=== PATIENT | female | born 1930 | race Caucasian/White ===

== ENCOUNTER 2016-03-28 13:59 | Emergency (ER) | payer OTHER ==
[~2016-03-28] VITALS: Ht 162.6 cm; Wt 59.0 kg
[~2016-03-28 13:59] MED LIST: ALLERGY RELIEF25 M2 PO; CEPACOL SORE T1 EAC7 PO; COZAAR100 MG PO; HYDROCHLOROTHIA25 M1 PO; LEVAQUIN 500 M500 MG PO; MUCINEX DM TABL1 TA1 PO; PROVENTIL HFA6.7 G1 INH
[2016-03-28] MEDS ORDERED: ALPRAZOLAM 0.0.25 M1 PO (16:21)
== END 2016-03-28 16:59 | disposition home or self-care (01) ==
LOC: ER 13:59
DX: S01.01XA Laceration without foreign body of scalp, initial encounter (principal); I10 Essential (primary) hypertension; Z90.710 Acquired absence of both cervix and uterus; Z88.5 Allergy status to narcotic agent; W10.8XXA Fall (on) (from) other stairs and steps, initial encounter; Y93.89 Activity, other specified; Y92.89 Other specified places as the place of occurrence of the external cause; Y99.8 Other external cause status

== ENCOUNTER → 2016-12-01 | Outpatient (CLI) | payer OTHER ==
[~2016-12-01] MED LIST changes: +ALPRAZOLAM 0.0.25 M1 PO
== END ==
LOC: CAT 09:56
DX: J47.9 Bronchiectasis, uncomplicated (principal)

== ENCOUNTER → 2017-01-05 | Outpatient (CLI) | payer OTHER | LOC: RAD 10:00 | DX: A31.0 Pulmonary mycobacterial infection (principal); J18.9 Pneumonia, unspecified organism ==

== ENCOUNTER → 2017-02-10 | Outpatient (CLI) | payer OTHER | LOC: CAT 09:55 | DX: J47.9 Bronchiectasis, uncomplicated (principal); J98.11 Atelectasis; A31.0 Pulmonary mycobacterial infection ==

== ENCOUNTER → 2017-03-16 | Outpatient (CLI) | payer OTHER | LOC: CAT 10:15 | DX: J47.9 Bronchiectasis, uncomplicated (principal); R91.1 Solitary pulmonary nodule ==

== ENCOUNTER 2017-04-03 14:30 | Inpatient (IN) | payer OTHER ==
[~2017-04-03] VITALS: Ht 157.5 cm; Wt 48.8 kg
--- NOTE | ~2017-04-03 | 2DMMODE ---
[facility] [address] [place] [address] 2 D/M-MODE ECHOCARDIOGRAM Name: DONNA GILL Room #: 356-P [facility] IN [facility]#: [id number] Admission: 04/03/17 Attend Phys: Merrick Dillon MD Discharge: Date of : [birth year] Date of Service: 04/07/17 1355 Report #: [id number] THIS REPORT FOR: //name// APPROVED REPORT Study performed: 04/07/2017 12:48:51 EXAM: Comprehensive 2D, Doppler, and color-flow Echocardiogram Patient Location: Bedside Room #: [facility] Status: routine BSA: 1.46 HR: 94 bpm BP: 110/62 mmHg Rhythm: Irregular Other Information Study Quality: Adequate Indications Pulmonary edema, elevated BNP, short of breath. 2D Dimensions RVDd: 35.63 mm LVEF(%): 71.37 (>50%) IVSd: 10.46 (7-11mm) LVOT Diam: 19.08 (18-24mm) LVDd: 36.41 mm PWd: 9.59 (7-11mm) LVDs: 21.90 (25-40mm) Aortic Root: 30.18 mm Pino's LVEF: 71.37 % Volumes Left Atrial Volume (Systole) Single Plane 4CH: 43.78 mL Single Plane 2CH: 39.11 mL LA ESV Index: 30.00 mL/m2 Aortic Valve AoV Peak Daniel.: 2.35 m/s AO Peak Gr.: 22.04 mmHg LVOT Max P.28 mmHg AO Mean Gr.: 11.84 mmHg AO V2 Mean: 1.61 m/s LVOT Max V: 1.15 m/s AO V2 VTI: 40.11 cm DANN Vmax: 1.[address] [facility] [employer] [place] [address] 2 D/M-MODE ECHOCARDIOGRAM Name: GILLDONNA Room #: 356-P [facility] IN .R.#: [id number] Admission: 04/03/17 Attend Phys: Merrick Dillon MD Discharge: Date of : 07/[birth year] Date of Service: 04/07/17 1355 Report #: [id number] E/A Ratio: 0.9 MV Decel. Time: 228.79 ms MV E Max Daniel.: 1.18 m/s MV A Daniel.: 1.29 m/s MV PHT: 66.35 ms IVRT: 65.74 ms Pulmonary Valve PV Peak Daniel.: 0.96 m/s PV Peak Gr.: 3.69 mmHg Tricuspid Valve TR Peak Daniel.: 3.19 m/s RAP Estimate: 10.00 mmHg TR Peak Gr.: 40.83 mmHg PA Pressure: 51.00 mmHg Left Ventricle The left ventricle is normal size. There is normal left ventricular wall thickness. Left ventricular systolic function is normal. LVEF is 60-65%. Mild diastolic dysfunction is present (impaired relaxation pattern). Right Ventricle The right ventricle is normal size. The right ventricular systolic function is normal. Atria The left atrium size is normal. The right atrium size is normal. Aortic Valve Aortic valve is calcified. No aortic regurgitation is present. Mild aortic stenosis. Peak pressure gradient of 22mmHg and a mean of 12mmHg. Mitral Valve The mitral valve is normal in structure. Mild mitral annular calcification. Trace mitral regurgitation. Tricuspid Valve The tricuspid valve is normal in structure. Mild tricuspid regurgitation. Estiamated PAP is 50-55mmHg. Pulmonic Valve Pulmonic valve is not well visualized. Trace pulmonic regurgitation. [facility] [address] [place] [address] 2 D/M-MODE ECHOCARDIOGRAM Name: DONNA GILL Room #: 356-P [facility] IN [facility].#: [id number] Admission: 04/03/17 Attend Phys: Merrick Dillon MD Discharge: Date of : 07/[birth year] Date of Service: 04/07/17 1355 Report #: [id number] Great Vessels The aortic root is normal in size. IVC is dilated and collapses <50% with inspiration. Pericardium There is no pericardial effusion. Right pleural effusion noted. <Conclusion> The left ventricle is normal size. Left ventricular systolic function is normal. Mild diastolic dysfunction is present (impaired relaxation pattern). The right ventricle is normal size. The left atrium size is normal. Mild aortic stenosis. Peak pressure gradient of 22mmHg and a mean of 12mmHg. Trace mitral regurgitation. Mild tricuspid regurgitation. Estiamated PAP is 50-55mmHg. <ELECTRONICALLY SIGNED> By: Ayden Almodovar MD 04/07/17 1355 1355 1355 Ayden Almodovar MD /INF
--- NOTE | ~2017-04-03 | CNG ---
[facility] [place] [address] CYTO-NONGYN REPORT PROCEDURE Name: DONNA CORDOBA Room #: 356-P ADM IN M.R.#: [id number] Admission: 04/03/17 Date of : [birth year] Discharge: Report #: [id number] Path Case #: [id number] CYTOPATHOLOGY REPORT COLLECTION DATE: 04/11/2017 RECEIVED DATE: 04/12/2017 SUBMITTING PHYS: Dr. Wei Servin OTHER PHYS: Dr. Merrick Peña CLINICAL HISTORY: Influenza SPECIMEN(S) RECEIVED: A.Bronchial wash * * * * * * * * * * * * FINAL DIAGNOSIS: Bronchial washing: - No malignant cells identified. Bronchial epithelial cells as well as alveolar macrophages in additional to inflammatory cells identified. GMS special stain for fungal elements positive for numerous fungal yeast elements. COMMENT: Co-review: Dr. Yesika Strong. (IUV:rlm; 04/14/2017) PATHOLOGIST: Vika Greenberg M.D. REPORT ELECTRONICALLY SIGNED BY: Vika Greenberg M.D. DATE/TIME: 04/14/2017 16:29 * * * * * * * * * * * * GROSS PATHOLOGY: Bronchial washing: The specimen is submitted unfixed, labeled "Donna Cordoba". Received by the Cytology Department is five mL of cloudy colorless fluid. One ThinPrep slide for pap stain and one ThinPrep for silver stain were prepared. (lg04.12.2017) PHARMACY CLERK(S): ASHLEY Ghotra([facility]) INITIAL CPT CODE(S): A; 56292, 07320 Professional services performed by [facility] at [facility] [address] [place] [address] Technical services performed by [facility] at [address] [place] [address], [facility] [address] [place] [address] CYTO-NONGYN REPORT PROCEDURE Name: DONNA CORDOBA Room #: 356-P [facility] IN [facility]#: [id number] Admission: 04/03/17 Date of : [birth year] Discharge: Report #: [id number] Path Case #: [id number] [address]. [facility] [address] [place] [address], [address] [place] [address] PHONE: [phone] DIRECTOR: John Rendon M.D. * * * END OF REPORT * * *
--- NOTE | ~2017-04-03 | HC ---
[facility] [place] [address] CONSULTATION Name: DONNA GILL Rosey Room #: 356-P [facility] IN ..#: [id number] Admission: 04/03/17 Attend Phys: Merrick Dillon MD Discharge: Date of : 07/20/[birth year] Report #: [id number] THIS REPORT FOR: //name// CC: Merrick Peña REASON FOR CONSULTATION: I was asked to evaluate concerning influenza. 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 She remains on a 3-drug program and has been doing reasonably well. She was seen last week in the office and showed stability of her respiratory status. She has been tolerating her medications reasonably well. Weight has been stable. We have not cleared her sputum yet for Mycobacterium and sputum culture was obtained last week for such. She had acute onset of fever, chills, myalgias, arthralgias and cough that developed 48 hours prior to her arrival. She was unable to make it to the office for evaluation and presented to the Emergency Room with fever, tachycardia and shortness of breath. She is on 2 liters of oxygen per nasal cannula. Chest x-ray showed extensive chronic lung changes with no acute findings. ALLERGIES: CODEINE. MEDICATIONS: As noted on her MAR including azithromycin, rifampin, ethambutol. Tamiflu was added yesterday. PAST MEDICAL HISTORY: Anxiety, hypertension, COPD, bronchiectasis. FAMILY HISTORY: Noncontributory. SOCIAL HISTORY: Nonsmoker, no significant alcohol intake. REVIEW OF SYSTEMS: Anorexia. No vomiting, no abdominal pain, no diarrhea, no dysuria. PHYSICAL EXAMINATION: GENERAL: Afebrile, hemodynamically stable. She is alert and cooperative and pleasant, in no acute distress. VITAL SIGNS: Maximum temperature in the last 24 hours is 101.2 degrees. She is on 2 liters of oxygen per nasal cannula. HEENT: Unremarkable. CHEST: Clear. LUNGS: Coarse breath sounds bilaterally with consolidation heard in the right anterior lower chest. No rub. HEART: Regular, without murmur. ABDOMEN: Soft, nontender, no hepatosplenomegaly or mass. [facility] [address] [place] [address] CONSULTATION Name: DONNA GILL Room #: 356-P [facility] IN [facility]#: [id number] Admission: 04/03/17 Attend Phys: Merrick Dillon MD Discharge: Date of : 07/20/[birth year] Report #: [id number] LABORATORY STUDIES: Chest x-ray: Chronic changes of her bronchiectasis, unchanged. Sodium 133, potassium 2.7, bicarbonate of 19, creatinine 0.9, alkaline phosphatase 117, ALT 19. Lactate 1.2. Hemoglobin 10.3, white count 8.5, platelet count 217,000 with 89% segs, 3% lymphs. ABG on 2 liters, pO2 of 65, pCO2 of 36, pH 7.45. Influenza A antigen positive. Blood cultures pending. IMPRESSION: An 86-year-old, 9 months into treatment for Mycobacterium avium complex, pulmonary disease that is complicating chronic bronchiectasis, presents now with influenza A. RECOMMENDATION: We will continue Tamiflu and obtain sputum cultures. <ELECTRONICALLY SIGNED> By: Newton Hardy MD 04/05/17 1257 1643 1810 Newton Hardy MD /nt
--- NOTE | ~2017-04-03 | P ---
[facility] [place] [address] PROCEDURE REPORT Name: DONNA GILL Rosey Room #: 356-P [facility] IN M.R.#: [id number] Admission: 04/03/17 Attend Phys: Merrick Dillon MD Discharge: 04/14/17 Date of : [birth year] Report #: [id number] THIS REPORT FOR: //name// CC: Newton Peña DATE OF SERVICE: 04/11/2017 PROCEDURE: Fiberoptic bronchoscopy with bronchial washings of diffuse airways. INDICATION: Persistent pneumonia despite 8 days of therapy, diffuse mucus plugging, history of bronchiectasis, ASA classification class 3. PROCEDURE NOTATION: After discussing risks and benefits of planned procedure with the patient, she desired to proceed. After obtaining informed consent, she was brought to vp lab 3 where she was placed on continuous cardiopulmonary monitoring and supplemental oxygen. She was then given 4% lidocaine nebulized to anesthetize the upper respiratory tract. Once accomplished, she received conscious sedation. A total of 3 mg of Versed and 25 mcg of fentanyl were titrated during the procedure to provide adequate sedation. Once accomplished, bronchoscope was passed through an oral biteblock until the vocal cords were visualized. Some thick white secretions were noted in the vocal cords that were aspirated through the bronchoscope. 1% lidocaine was then instilled in the vocal cords to provide topical anesthesia. Vocal cords moved appropriately both before and after procedure. The bronchoscope was then passed in the trachea, 1% lidocaine was instilled in the tracheobronchial tree bilaterally to provide topical anesthesia. Once complete, airways were surveyed. FINDINGS: Mainstem, lobar, segmental and subsegmental bronchi were all explored. There was diffuse bronchiectasis and thick white secretions as well as thin white secretions noted throughout. Some mucus plugging noted predominantly in the lower lobes bilaterally. There were some atypical variance to the anatomy of the right upper lobe with 4 upper lobe segmental bronchi as opposed to 3. No other significant findings noted. The airways were purged and aspirated using several 20 mL aliquots of saline. The airways were clear at the end of procedure. The patient did have some hypoxemia associated with procedure and did require supplemental aerosol mask at the end of procedure and then aerosol treatment with albuterol provided at the end of the procedure. The patient otherwise tolerated well with no noted complications [address] [address] PROCEDURE REPORT Name: GILLDONNA Room #: 356-P [facility] IN M.R.#: [id number] Admission: 04/03/17 Attend Phys: Merrick Dillon MD Discharge: 04/14/17 Date of : [birth year]/20/[birth year] Report #: [id number] SUGGEST: Awaiting cultures. Continue with airway clearance. <ELECTRONICALLY SIGNED> By: Wei Servin MD 04/19/17 1825 1517 0748 Wei Servin MD /nt
--- NOTE | ~2017-04-03 | HC ---
[facility] [place] [address] CONSULTATION Name: DONNA GILL Room #: 356-P ADM IN M.R.#: [id number] Admission: 04/03/17 Attend Phys: Merrick Dillon MD Discharge: Date of : 07/20/[birth year] Report #: [id number] THIS REPORT FOR: //name// CC: Newton Peña DATE OF SERVICE: 04/04/2017 REFERRING PROVIDER: Dr. Merrick Dillon. REASON FOR CONSULTATION: Influenza. CHIEF COMPLAINT: Shortness of breath and malaise. HISTORY OF PRESENT ILLNESS: Our group was asked to see the patient in consultation while hospitalized at [facility]. He is known to me from prior office visits for bronchiectasis and pulmonary nodules with prior workup consistent with Mycobacterium avium complex, is on 3-drug therapy under the direction of Dr. Newton Hardy over the last few days. She states sudden onset 2 days ago of increased symptoms of shortness of breath, fever, weakness. Daughter and maybe granddaughter may have had similar symptoms. Some significant weakness and fatigue, presented to our Emergency Department, was positive for influenza A. No nausea or vomiting. No muscle aches or myalgias, just some generalized weakness, sore throat as described. She has been started on Tamiflu and antimicrobial therapy. ALLERGIES: CODEINE. PAST MEDICAL HISTORY: 1. 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 2. History of allergic rhinitis. OUTPATIENT MEDICATIONS: 1. Losartan. 2. Hydrochlorothiazide. 3. Ethambutol. 4. Rifampin. 5. Azithromycin. SOCIAL HISTORY: The patient is a nonsmoker, no alcohol consumption. Lives with family. FAMILY HISTORY: Negative for any significant pulmonary disease, recent ill contacts at home. [facility] [address] [place] [address] CONSULTATION Name: DONNA GILL Room #: 356-P [facility] IN .R.#: [id number] Admission: 04/03/17 Attend Phys: Merrick Dillon MD Discharge: Date of : [birth year]/20/[birth year] Report #: [id number] REVIEW OF SYSTEMS: CONSTITUTIONAL: Fever, no chills. Some general malaise. ENT: No upper respiratory congestion or rhinorrhea. CARDIOVASCULAR: No chest pains or palpitations. GASTROINTESTINAL: No nausea, vomiting or abdominal pain. GENITOURINARY: No dysuria, no frequency. INTEGUMENT: Denies any rash. MUSCULOSKELETAL: No new joint pains. PHYSICAL EXAMINATION: VITAL SIGNS: Temperature max 38.4 overnight, temperature current 37.4, pulse 110 and regular, respiratory rate 20, blood pressure 118/56, oxygen saturation 92%. GENERAL: This is a pleasant elderly woman, does not appear in any distress. ENT: Clear oropharynx. No thrush. No erythema, no ulcerations. NECK: Supple, no lymphadenopathy. LUNGS: Bilateral basilar inspiratory crackles with occasional wheezes. CARDIOVASCULAR: Heart regular, but tachycardic. No murmurs. ABDOMEN: Soft, nontender, no masses. EXTREMITIES: No edema. INTEGUMENT: No rash. LABORATORY DATA: White blood cell count 9000, hemoglobin 10, hematocrit 30, platelet count 217. Sodium 133, potassium 2.7, chloride 99, bicarbonate 25, BUN 19, creatinine 0.9, glucose 84. BNP was 987. Arterial blood gas yesterday on 2 liters revealed pH 7.46, pCO2 of 37, pO2 of 66, bicarbonate 25, lactate is 0.7. Chest radiograph done yesterday afternoon shows no acute process, chronic evidence of bronchiectasis and pulmonary nodules noted. IMPRESSION: 1. Influenza A. 2. Lower respiratory infection secondary to above and possibly superimposed other infectious process. 3. Asthma with acute exacerbation. SUGGESTIONS: 1. Bronchodilators. 2. Antibiotics per Infectious Disease Service. 3. Tamiflu. 4. Follow chest radiographs. 5. We will follow along with you. [address] [address] CONSULTATION Name: DONNA GILL Rosey Room #: 356-P [facility] IN [facility]#: [id number] Admission: 04/03/17 Attend Phys: Merrick Dillon MD Discharge: Date of : [birth year]/20/[birth year] Report #: [id number] Thank you for requesting our suggestions. <ELECTRONICALLY SIGNED> By: Wei Servin MD 04/07/17 1810 1726 1849 Wei Servin MD /nt
--- NOTE | ~2017-04-03 | EKG ---
[address] [place] [employer] [address] ELECTROCARDIOGRAM REPORT Name: BRIDGETDONNA Rosey Room #: 356-P ADM IN M.R.#: [id number] Admission: 04/03/17 Attend Phys: Merrick Dillon MD Discharge: Date of : [birth year] Report #: [id number] THIS REPORT FOR: //name// [facility] ED Test Date: 2017-04-03 Test Time: 14:51:18 Pat Name: DONNA GILL Department: Room: 356 Gender: F Continuous Improvement Specialist: : [id number] Requested By: Brian Mendez Order Number: [id number] MD: Thanh Martinez Measurements Intervals [place] Rate: 124 P: 83 UT: 187 QRS: 15 QRSD: 76 T: -17 QT: 286 QTc: 411 Interpretive Statements Sinus tachycardia Borderline T abnormalities, inferior leads Compared to ECG 10/12/1998 00:39:00 T-wave abnormality now present Sinus rhythm no longer present Electronically Signed On 04-03-2017 23:25:56 BARRELHEAD INSPECTOR by Thanh Martinez [email or web address] <ELECTRONICALLY SIGNED> By: Thanh Martinez MD 04/03/17 2325 1451 1451 Thanh Martinez MD /CARLOS
[2017-04-03 14:32] VITALS: BP 145/70
[2017-04-03 15:13] LABS: ABSOLUTE NEUTROPHILS 9.4 thou/uL (1.4-8.2); BASOPHILS 0.4 % (0.0-2.0); EOSINOPHILS 0.7 % (0.0-3.0); HEMATOCRIT 36.3 % (37.0-47.0); HEMOGLOBIN 12.2 gm/dL (12.0-15.0); MCH 30.3 pg (26.0-34.0); MCHC 33.7 g/dL (28.0-37.0); MCV 89.9 fL (80.0-100.0); MONOCYTES 6.5 % (1.0-8.0); PLATELET COUNT 277 thou/uL (150-400); POLYS 89.4 % (36.0-66.0); RBC 4.04 mil/uL (4.20-5.00); RDW 12.9 % (10.5-14.5); WBC 10.5 thou/uL (4.0-11.0)
[2017-04-03 15:23] LABS: ANION GAP 9 mmol/L (7-16); BUN 23 mg/dL (7-18); CALCIUM 9.6 mg/dL (8.5-10.1); CHLORIDE 96 mmol/L (98-107); CO2 29 mmol/L (21-32); CREATININE 1.1 mg/dL (0.6-1.0); GLUCOSE 137 mg/dL (74-106); POTASSIUM 3.6 mmol/L (3.5-5.1); SODIUM 134 mmol/L (136-145)
[2017-04-03 15:32] LABS: ALBUMIN 3.6 g/dL (3.4-5.0); SGOT 24 U/L (15-37); SGPT 19 U/L (30-65); TOTAL BILIRUBIN 0.7 mg/dL (<0.1-1.0); TOTAL PROTEIN 8.6 g/dL (6.4-8.2); TROPONIN-I < 0.04 ng/mL (<0.06)
[2017-04-03 15:54] LABS: BE(vivo) 1.5 mmol/L (-2 to +3); HCO3 25.3 mmol/L (22.0-26.0); PCO2 36.8 mmHg (35.0-45.0); PO2 65.5 mmHg (80.0-100.0); pH 7.455 (7.360-7.450); sO2 93.9 % (92.0-98.0)
[2017-04-03 16:43] VITALS: BP 145/70
[2017-04-03 20:33] VITALS: BP 123/61
[2017-04-03] MEDS ORDERED: MYAMBUTOL 400400 M1 PO (20:59)
[2017-04-03] MEDS ORDERED: RIFAMPIN150 MG PO (21:00)
[2017-04-03 21:10] VITALS: BP 113/53
[2017-04-04] VITALS: BP 106/59
[2017-04-04] MEDS ORDERED: AZITHROMYCIN 2250 MG PO (00:43)
[2017-04-04] MEDS ORDERED: PROZAC10 MG PO (00:44)
[2017-04-04 04:00] VITALS: BP 114/59
[2017-04-04 06:20] LABS: HEMATOCRIT 30.1 % (37.0-47.0); HEMOGLOBIN 10.3 gm/dL (12.0-15.0); MCH 30.8 pg (26.0-34.0); MCHC 34.1 g/dL (28.0-37.0); MCV 90.4 fL (80.0-100.0); RBC 3.33 mil/uL (4.20-5.00); WBC 8.5 thou/uL (4.0-11.0)
[2017-04-04 06:25] LABS: CALCIUM 8.2 mg/dL (8.5-10.1); CREATININE 0.9 mg/dL (0.6-1.0)
[2017-04-04 06:29] LABS: POTASSIUM 2.7 mmol/L (3.5-5.1)
[2017-04-04 07:34] VITALS: BP 113/56
[2017-04-04 11:38] VITALS: BP 127/63
[2017-04-04 15:20] VITALS: BP 118/56
[2017-04-04 19:41] VITALS: BP 105/46
[2017-04-05 03:30] VITALS: BP 91/44
[2017-04-05 08:42] VITALS: BP 99/55
[2017-04-05 11:28] VITALS: BP 119/54
[2017-04-05 15:50] VITALS: BP 136/62
[2017-04-05 19:46] VITALS: BP 131/66
[2017-04-06 03:45] VITALS: BP 107/61
[2017-04-06 08:35] VITALS: BP 107/62
[2017-04-06 12:40] VITALS: BP 113/57
[2017-04-06 16:50] VITALS: BP 167/71
[2017-04-06 20:00] VITALS: BP 161/85
[2017-04-07 04:39] VITALS: BP 107/60
[2017-04-07 05:42] LABS: ABSOLUTE NEUTROPHILS 6.1 thou/uL (1.4-8.2); BASOPHILS 0.2 % (0.0-2.0); EOSINOPHILS 0.1 % (0.0-3.0); HEMATOCRIT 28.8 % (37.0-47.0); LYMPHOCYTES 14.1 % (24.0-44.0); MCH 30.9 pg (26.0-34.0); MCHC 34.6 g/dL (28.0-37.0); MCV 89.4 fL (80.0-100.0); MONOCYTES 10.4 % (1.0-8.0); PLATELET COUNT 182 thou/uL (150-400); POLYS 75.2 % (36.0-66.0); RBC 3.23 mil/uL (4.20-5.00); RDW 12.7 % (10.5-14.5); WBC 8.1 thou/uL (4.0-11.0)
[2017-04-07 06:00] LABS: CALCIUM 7.4 mg/dL (8.5-10.1); CREATININE 0.7 mg/dL (0.6-1.0); POTASSIUM 3.2 mmol/L (3.5-5.1)
[2017-04-07 08:15] VITALS: BP 110/62
[2017-04-07 12:30] VITALS: BP 109/58
[2017-04-07 13:14] VITALS: BP 109/58
[2017-04-07 15:30] VITALS: BP 137/73
[2017-04-07 19:43] VITALS: BP 134/65
[2017-04-08 04:19] VITALS: BP 129/59
[2017-04-08 08:01] VITALS: BP 112/49
[2017-04-08 11:04] VITALS: BP 106/43
[2017-04-08 15:35] VITALS: BP 119/63
[2017-04-08 20:00] VITALS: BP 103/60
[2017-04-09 03:50] LABS: CALCIUM 8.3 mg/dL (8.5-10.1); CREATININE 0.8 mg/dL (0.6-1.0)
[2017-04-09 03:58] LABS: POTASSIUM 2.9 mmol/L (3.5-5.1)
[2017-04-09 04:00] VITALS: BP 121/63
[2017-04-09 07:52] VITALS: BP 100/56
[2017-04-09 11:06] VITALS: BP 105/56
[2017-04-09 23:15] VITALS: BP 102/48
[2017-04-10 04:44] VITALS: BP 99/53
[2017-04-10 07:41] VITALS: BP 194/118
[2017-04-10 08:03] VITALS: BP 116/63
[2017-04-10 12:16] VITALS: BP 128/62
[2017-04-10 19:45] VITALS: BP 113/56
[2017-04-11 05:15] VITALS: BP 99/58
[2017-04-11 07:29] VITALS: BP 132/64
[2017-04-11 10:11] LABS: HEMATOCRIT 27.4 % (37.0-47.0); HEMOGLOBIN 9.5 gm/dL (12.0-15.0); MCH 30.9 pg (26.0-34.0); MCHC 34.8 g/dL (28.0-37.0); MCV 88.9 fL (80.0-100.0); RBC 3.08 mil/uL (4.20-5.00); RDW 12.8 % (10.5-14.5); WBC 4.8 thou/uL (4.0-11.0)
[2017-04-11 10:24] LABS: CALCIUM 8.5 mg/dL (8.5-10.1); CREATININE 0.9 mg/dL (0.6-1.0); MAGNESIUM 1.9 mg/dL (1.8-2.4); POTASSIUM 3.3 mmol/L (3.5-5.1)
[2017-04-11 11:49] VITALS: BP 112/57
[2017-04-11 16:05] VITALS: BP 147/72
[2017-04-11 20:00] VITALS: BP 123/60
[2017-04-12 04:00] VITALS: BP 112/61
[2017-04-12 09:09] VITALS: BP 112/71
[2017-04-12 10:20] LABS: CALCIUM 8.6 mg/dL (8.5-10.1); POTASSIUM 3.7 mmol/L (3.5-5.1)
[2017-04-12 12:33] VITALS: BP 120/89
[2017-04-12 17:17] VITALS: BP 133/67
[2017-04-12 19:33] VITALS: BP 94/52
[2017-04-13 04:15] VITALS: BP 119/34
[2017-04-13 04:31] VITALS: BP 169/55
[2017-04-13 04:33] VITALS: BP 123/67
[2017-04-13 06:42] LABS: CALCIUM 8.6 mg/dL (8.5-10.1); CREATININE 0.9 mg/dL (0.6-1.0); POTASSIUM 3.5 mmol/L (3.5-5.1)
[2017-04-13 12:25] VITALS: BP 121/52
[2017-04-13 15:45] VITALS: BP 137/66
[2017-04-13 19:57] VITALS: BP 105/80
[2017-04-14 03:59] VITALS: BP 123/60
[2017-04-14 04:26] LABS: CALCIUM 8.3 mg/dL (8.5-10.1); CREATININE 0.9 mg/dL (0.6-1.0); POTASSIUM 3.6 mmol/L (3.5-5.1)
[2017-04-14 08:03] VITALS: BP 106/74
[2017-04-14] MEDS ORDERED: TAMIFLU30 MG PO (08:40)
[2017-04-14] MEDS ORDERED: ACETAMINOPHEN325 M1 PO (08:41)
[2017-04-14] MEDS ORDERED: THEO-24100 MG PO (08:41)
[2017-04-14] MEDS ORDERED: MUCINEX600 MG PO (08:41)
[2017-04-14] MEDS ORDERED: PREDNISONE 20 M20 M1 PO (08:42)
[2017-04-14] MEDS ORDERED: AUGMENTIN 875-1 EACH PO (08:43)
[2017-04-14] MEDS ORDERED: DUONEB 2.5-0.5 M3 ML INH (10:11)
[2017-04-14 11:46] VITALS: BP 109/58
[2017-04-14 11:54] VITALS: BP 124/52
== END 2017-04-14 16:45 | DRG 853 ==
LOC: ER 14:30 → 3W 16:11 → EROBS 16:11 → 3W 20:33
PROVIDERS: Hospitalist; Internal Medicine; Internal Medicine Pulmonary Disease; Physician Assistant; Specialist
PROC: 0B9C8ZZ Drainage of Right Upper Lung Lobe, Via Natural or Artificial Opening Endoscopic (ICD-10-PCS; principal; 2017-04-11)
DX: A41.9 Sepsis, unspecified organism (principal); J96.21 Acute and chronic respiratory failure with hypoxia; E43 Unspecified severe protein-calorie malnutrition; J10.00 Influenza due to other identified influenza virus with unspecified type of pneumonia; J69.0 Pneumonitis due to inhalation of food and vomit; N17.9 Acute kidney failure, unspecified; J45.901 Unspecified asthma with (acute) exacerbation; Z68.1 Body mass index [BMI] 19.9 or less, adult; A31.0 Pulmonary mycobacterial infection; I10 Essential (primary) hypertension; E86.0 Dehydration; I27.20 Pulmonary hypertension, unspecified; J47.9 Bronchiectasis, uncomplicated; F41.9 Anxiety disorder, unspecified; Z98.42 Cataract extraction status, left eye; Z90.710 Acquired absence of both cervix and uterus; Z79.899 Other long term (current) drug therapy; Z88.5 Allergy status to narcotic agent; Z98.41 Cataract extraction status, right eye
CPT/HCPCS: 10779

== ENCOUNTER → 2017-05-01 | Outpatient (CLI) | payer OTHER ==
[~2017-05-01] MED LIST changes: +ACETAMINOPHEN325 M1 PO; +AUGMENTIN 875-1 EACH PO; +AZITHROMYCIN 2250 MG PO; +DUONEB 2.5-0.5 M3 ML INH; +MUCINEX600 MG PO; +MYAMBUTOL 400400 M1 PO; +PREDNISONE 20 M20 M1 PO; +PROZAC10 MG PO; +RIFAMPIN150 MG PO; +TAMIFLU30 MG PO; +THEO-24100 MG PO
== END ==
LOC: RAD 11:58
DX: A31.0 Pulmonary mycobacterial infection (principal); R91.8 Other nonspecific abnormal finding of lung field; J90 Pleural effusion, not elsewhere classified

== ENCOUNTER → 2017-09-13 | Outpatient (CLI) | payer OTHER | LOC: CAT 08-30 16:54 | DX: J47.9 Bronchiectasis, uncomplicated (principal); I25.10 Atherosclerotic heart disease of native coronary artery without angina pectoris; J90 Pleural effusion, not elsewhere classified; I31.3 Pericardial effusion (noninflammatory) ==

== ENCOUNTER → 2017-12-27 | Outpatient (CLI) | payer OTHER | LOC: RAD 12-26 15:07 | DX: A31.0 Pulmonary mycobacterial infection (principal); M41.85 Other forms of scoliosis, thoracolumbar region ==

== ENCOUNTER 2018-02-26 16:31 | Emergency (ER) | payer OTHER ==
[~2018-02-26] VITALS: Ht 160 cm; Wt 52.9 kg
[2018-02-26 18:56] VITALS: BP 140/65
== END 2018-02-26 21:18 | disposition home or self-care (01) ==
LOC: ER 16:31
DX: S01.81XA Laceration without foreign body of other part of head, initial encounter (principal); I10 Essential (primary) hypertension; F41.9 Anxiety disorder, unspecified; Z88.5 Allergy status to narcotic agent; Z90.710 Acquired absence of both cervix and uterus; W01.198A Fall on same level from slipping, tripping and stumbling with subsequent striking against other object, initial encounter; Y92.000 Kitchen of unspecified non-institutional (private) residence as the place of occurrence of the external cause; Y93.89 Activity, other specified; Y99.8 Other external cause status

== ENCOUNTER → 2018-04-24 | Outpatient (CLI) | payer OTHER | LOC: RAD 15:06 | DX: J98.4 Other disorders of lung (principal); R91.8 Other nonspecific abnormal finding of lung field; M41.85 Other forms of scoliosis, thoracolumbar region ==

== ENCOUNTER 2018-06-20 17:41 | Inpatient (IN) | payer OTHER ==
[~2018-06-20] VITALS: Ht 160 cm; Wt 54.5 kg
[2018-06-20 18:03] VITALS: BP 141/73
[2018-06-20 18:20] LABS: ABSOLUTE NEUTROPHILS 6.5 thou/uL (1.4-8.2); BASOPHILS 1.2 % (0.0-2.0); HEMATOCRIT 33.5 % (37.0-47.0); HEMOGLOBIN 11.2 gm/dL (12.0-15.0); LYMPHOCYTES 23.3 % (24.0-44.0); MCH 29.6 pg (26.0-34.0); MCHC 33.4 g/dL (28.0-37.0); MCV 88.5 fL (80.0-100.0); MONOCYTES 7.2 % (1.0-8.0); PLATELET COUNT 315 thou/uL (150-400); POLYS 66.3 % (36.0-66.0); RBC 3.79 mil/uL (4.20-5.00); RDW 13.8 % (10.5-14.5); WBC 9.9 thou/uL (4.0-11.0)
[2018-06-20 18:25] LABS: ANION GAP 7 mmol/L (7-16); BUN 19 mg/dL (7-18); CALCIUM 9.1 mg/dL (8.5-10.1); CHLORIDE 101 mmol/L (98-107); CO2 27 mmol/L (21-32); GLUCOSE 101 mg/dL (74-106); POTASSIUM 4.4 mmol/L (3.5-5.1); SODIUM 135 mmol/L (136-145)
[2018-06-20 18:34] LABS: TROPONIN-I <0.06 ng/mL (<0.06)
[2018-06-20] MEDS ORDERED: HYDROCHLOROTH12.5 M1 PO (18:44)
[2018-06-20] MEDS ORDERED: COZAAR 25 MG TA25 M2 PO (18:46)
[2018-06-20] MEDS ORDERED: TESSALON PERLE100 MG PO (18:47)
[2018-06-20 19:37] LABS: BE(vivo) 2.2 mmol/L (-2 to +3); HCO3 26.5 mmol/L (22.0-26.0); pH 7.439 (7.360-7.450); sO2 98.1 % (92.0-98.0)
[2018-06-20 20:46] VITALS: BP 120/68
[2018-06-20 21:49] VITALS: BP 121/66
--- NOTE | 2018-06-21 02:22 | NUR ---
PT ORIENTATED TO ROOM AND CALL LIGHT PTS DAUGHTER HELPED PROVIDE INFO FOR HEALTH HX PT GIVEN TYENOL FOR PAIN.
[2018-06-21 04:13] VITALS: BP 117/65
[2018-06-21 06:04] LABS: HEMATOCRIT 29.4 % (37.0-47.0); HEMOGLOBIN 9.8 gm/dL (12.0-15.0); MCH 29.8 pg (26.0-34.0); MCHC 33.4 g/dL (28.0-37.0); MCV 89.4 fL (80.0-100.0); RBC 3.29 mil/uL (4.20-5.00); RDW 13.5 % (10.5-14.5); WBC 5.7 thou/uL (4.0-11.0)
[2018-06-21 06:05] LABS: CALCIUM 8.3 mg/dL (8.5-10.1); CREATININE 0.9 mg/dL (0.6-1.0); POTASSIUM 3.8 mmol/L (3.5-5.1)
[2018-06-21 07:31] VITALS: BP 121/66
--- NOTE | 2018-06-21 08:40 | EKG ---
[address] [address] ELECTROCARDIOGRAM REPORT Name: DONNA GILL Room #: 455-P ADM IN M.R.#: [id number] ������������������ Admission: 06/20/18 ������������������ Attend Phys: Eliseo Hess MD Discharge: ������������������ Date of : [birth year] Report #: [id number] ����������������������������������������������������������������� [id number] THIS REPORT FOR: //name// [facility] ED Test Date: 2018-06-20 Test Time: 18:05:53 Pat Name: DONNA GILL Department: Room: [facility] Gender: F Contact [employer] Edge Buffer: NICKI : [id number] Requested By: Kane Malin Order Number: [id number] MD: Maurice Carias Measurements Intervals [place] Rate: 98 P: 20 TN: 169 QRS: 17 QRSD: 71 T: 24 QT: 329 QTc: 421 Interpretive Statements Sinus rhythm Atrial premature complex Compared to ECG 04/03/2017 14:51:18 Atrial premature complex(es) now present Sinus tachycardia no longer present Electronically Signed On 06-21-2018 8:40:30 CDT by Maurice Carias [email or web address] ��������������������������������������������� <ELECTRONICALLY SIGNED> ���������������������������������������� By: Maurice Carias MD, [facility] ��������������������������������������������� 06/21/18 0840 1805 04 Maurice Carias MD, [facility] /EPI
--- NOTE | 2018-06-21 15:15 | NUR ---
PT ADMITTED RELATED TO SOB. CM REVIEWED CHART AND SPOKE WITH CARE TEAM. CM MET WITH PT AND HER GRANDDAUGHTER AT BEDSIDE THIS DAY. PT IS A&O X4. CM ROLE INTRODUCED. PT INDICATED THAT SHE LIVES IN AN APARTMENT WITH HER DTR WITH 1 STEP TO ENTER AND NO STEPS INSIDE. 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 PT INDICATED NO HOME HEALTH HISTORY. PT INDICATED SHE PLANS TO RETURN HOME ONCE MEDICALLY STABLE. CM TO FOLLOW INDICATED WITH DC PLANNING.
--- NOTE | 2018-06-21 16:55 | NUR ---
ASSUMED CARE 0700. FROM HOME WITH DAUGHTER. ALERTX3 WITH FORGETFULLNESS. ON FALL PRECAUTIONS FROM RESENT FALL AT HOME. VOICE SHE WILL NOT TAKE ENOXAPARIN BELLY SHOT. SCD'S IN PLACE. UA AND NARE SWABS SENT TO LAB THIS AFTERNOON. RESUMED HOME MEDS. DC'D TELE AND PT MOVED TO SENIOR SUITS AT THIS TIME.
--- NOTE | 2018-06-21 17:13 | NUR ---
PATIENT TRANSFERRED FROM 4W 464 TO SICU 225, PATIENT ORIENTED TO ROOM AND STAFF, PATIENT MANAGER MADE PATIENT COMFORTABLE IN BED, PERSONAL BELONGINGS AND CALL LIGHT IN REACH, WILL CONTINUE TO MONITOR
[2018-06-21 17:14] VITALS: BP 131/80
[2018-06-21 18:37] VITALS: BP 119/66
[2018-06-22 00:35] LABS: BE(vivo) -3.5 mmol/L (-2 to +3); HCO3 21.4 mmol/L (22.0-26.0); PO2 293.3 mmHg (80.0-100.0); pH 7.369 (7.360-7.450); sO2 99.7 % (92.0-98.0)
--- NOTE | 2018-06-22 04:15 | NUR ---
ASSUMED CARE OF PATIENT AT 190. VSS. ASSESSMENT COMPLETED AT 2109. COARSE CRACKLES NOTED THROUGHOUT ALL 5 LOBES. PT ON O2 @ 2L VIA NC. SOA NOTED WHEN AMBULATING TO TOILET. RT IN ROOM AROUND 2300 AND INCREASED O2 TO 3L VIA NC. PT CALLED OUT AT 0005 C/O "NOT FEELING WELL" AND "FEELING LIKE SHE WAS ABOUT TO PASS OUT". PT WAS TACHYPNIC AND ANXIOUS AT THIS TIME. O2 INCREASED TO 6L VIA NC AND RT PAGED. SPO2: 66%. RT PUT PT ON 12L VIA NRB MASK AND INITIATED CONTINUOUS O2 SAT MONITORING. SOUTH X RAY TECHNICIAN NOTIFIED OF CHANGE OF CONDITION, AND ORDERED STAT ABG, STAT CXR, AND TO D/C IVF. ORDERS CARRIED OUT AND X RAY TECHNICIAN NOTIFIED OF RESULTS. RT REMOVED NRB MASK AFTER ABG RESULTS WERE UNREMARKABLE AND PUT PT BACK ON 6L VIA NC. AT 209, PT DESATTED TO 75% ON 6L VIA NC AFTER A COUGHING FIT. SPUTUM WAS PINK/RED IN COLOR AT THIS TIME. RT PUT PATIENT BACK ON 12L VIA NRB MASK. X RAY TECHNICIAN NOTIFIED AND ORDERED LASIX 20MG IVP NOW WHICH WAS GIVEN BY CATIA MOSLEY. PT UP TO BSC WITH UNSTEADINESS AND SHAKING X4 TIMES AFTER LASIX. PT DESAT TO THE LOW 80'S WHEN GETTING UP TO BSC EACH TIME. X RAY TECHNICIAN REASSESSED PATIENT AND ORDERED PATIENT TO BE TRANSFERRED TO 3 BED 355.
[2018-06-22 05:10] VITALS: BP 166/92
--- NOTE | 2018-06-22 05:25 | NUR ---
ASSESSMENT: PT ARRIVED TO THE UNIT AT APPROXIMATELY 0500 ACCOMPANIED BY STAFF. PT IS ALERT AND ORIENT TIMES THREE. SATS ARE 98% ON 12 LITERS NON-REBREATHER, AND 6 LITERS BLEED IN OF O2. PT DENIES PAIN AND NAUSEA. VSS, AFEBRILE. PT IS COMFORTABLE AT THIS TIME. DOES HAVE A NON-PRODUCTIVE COUGH. ON CONTINUOUS PULSE OX. USING BED HANNAH UNTIL BETTER STABLED. SLOW PROGRESS, WILL CONTINUE TO MONITOR.
--- NOTE | 2018-06-22 05:40 | NUR ---
I ACKNOWLEDGE THE ASSESSMENT AND NOTE ON THIS PATIENT.
[2018-06-22 07:36] VITALS: BP 140/83
[2018-06-22 10:39] LABS: URINE BILIRUBIN NEGATIVE (Negative); URINE BLOOD 1+ (Negative); URINE CLARITY CLEAR; URINE COLOR YELLOW; URINE GLUCOSE-RANDOM* NEGATIVE (Negative); URINE KETONES NEGATIVE (Negative); URINE LEUKOCYTES-REFLEX NEGATIVE (Negative); URINE NITRITE-REFLEX NEGATIVE (Negative); URINE PROTEIN (DIPSTICK) NEGATIVE (Negative); URINE SPECIFIC GRAVITY 1.015 (1.005-1.035); URINE UROBILINOGEN 0.2 E.U./dl (0.2-1.0)
[2018-06-22 10:55] LABS: SQUAMOUS 0-3 Few /LPF (0-3)
[2018-06-22 10:57] LABS: CASTS None Seen /LPF (None Seen); CRYSTALS None Seen /LPF (None Seen)
[2018-06-22 10:58] LABS: BACTERIA-REFLEX 1-9 Few /HPF (None Seen); URINE RBC 0-2 Rare /HPF (0-2); URINE WBC-REFLEX 0-5 Rare /HPF (0-5)
[2018-06-22 11:26] VITALS: BP 129/72
--- NOTE | 2018-06-22 13:08 | HC ---
[facility] [place] [address] CONSULTATION Name: DONNA GILL Room #: 355-P [facility] IN ..#: [id number] Admission: 06/20/18 ������������������ Attend Phys: Eliseo Hess MD Discharge: ������������������ Date of : [birth year] Report #: [id number] THIS REPORT FOR: //name// CC: Eliseo Peña DATE OF SERVICE: 06/20/2018 INFECTIOUS DISEASE CONSULTATION: REASON FOR CONSULTATION: Evaluate pneumonia. HISTORY OF PRESENT ILLNESS: The patient is an 87-year-old known from her previous history of bronchiectasis and pulmonary Mycobacterium avium complex infection. She completed a 1-year course of combination mycobacterial therapy in 12/2017. Since then, she has done reasonably well. She has maintained her weight. Her respiratory status has been stable with no increase in her oxygen demand. She presents now with increased cough, low-grade fever and congestion over the past 2 days. Her daughter whom she lives with, has had respiratory tract infection predating this. She has had mild amount of yellowish sputum without hemoptysis. No pleuritic chest pain. She is now on oxygen supplementation. No nausea, vomiting or diarrhea. No dysuria or frequency. She has had no rash or arthritis symptoms. She has had no confusion. REVIEW OF SYSTEMS: A 10-point review of systems is negative other than what is described above. ALLERGIES: CODEINE. MEDICATIONS: As noted on her MAR, now on azithromycin and ceftriaxone. 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 FAMILY HISTORY: Noncontributory. SOCIAL HISTORY: Nonsmoker, no significant alcohol intake. Lives with her daughter. PHYSICAL EXAMINATION: VITAL SIGNS: Afebrile and hemodynamically stable. GENERAL: She was sitting up in her chair. She was alert. She was on oxygen per nasal cannula at 2 liters. Mental status was normal. She had generalized weakness as I have noticed in the patient before. HEENT: Without scleral icterus. Mouth without mucositis. [facility] [address] [place] [address] CONSULTATION Name: DONNA GILL Rosey Room #: 355-P ADM IN M.R.#: [id number] Admission: 06/20/18 ������������������ Attend Phys: Eliseo Hess MD Discharge: ������������������ Date of : [birth year] Report #: [id number] NECK: Supple. SKIN: Without rash. No palpable adenopathy. CHEST: Coarse bilaterally posteriorly with no consolidation. Most of the changes were in the bases. CARDIOVASCULAR: Heart was regular, without murmur, gallop or rub. ABDOMEN: Soft and nontender with no hepatosplenomegaly or mass. EXTREMITIES: No peripheral edema. No cyanosis or clubbing identified. Cranial nerves intact. Strength and sensation equal in her upper and lower extremities was symmetric and within normal limits. LABORATORY STUDIES: MRSA screen was negative. Influenza antigen was negative. Creatinine 0.9, hemoglobin 9.8, WBC 5.7, platelet count 265,000. BNP 992. Chest x-ray, bilateral interstitial changes with possible component of acute worsening. Blood culture is negative to date. IMPRESSION: 1. An 87-year-old with bilateral pulmonary interstitial disease with bronchiectasis previously treated for Mycobacterium avium complex infection now presents with community-acquired pneumonia. Would be concerned about viral etiology including influenza versus bacterial infection. Although, Mycobacterium can relapse, it seems rather acute change in her condition for this. Prior to this event, she was doing reasonably well at home. 2. Hypertension. 3. Anxiety. RECOMMENDATION: We will continue IV antibiotic therapy with azithromycin, ceftriaxone and add Tamiflu. Obtain urine antigens as well as viral respiratory panel. We will obtain serial chest x-ray. We will see how she does over the next 24 hours before entertaining further evaluation. ��������������������������������������������� <ELECTRONICALLY SIGNED> ���������������������������������������� By: Newton Hardy MD ��������������������������������������������� 06/22/18 1308 [id number] Newton Hardy MD /nt
--- NOTE | 2018-06-22 15:04 | NUR ---
SW reviewed chart and spoke with nursing and attending physician. Pt was transferred from [facility]W to [facility] and then to 3W. Pt requiring O2 and NRB mask. SW attempted to meet with pt and dtr at bedside. Both were sleeping soundly during time of SW visit. SW is following to assist as needed with discharge planning.
[2018-06-22 15:11] VITALS: BP 110/67
--- NOTE | 2018-06-22 18:08 | NUR ---
ASSUMED ATIENT CARE AT 0700. A/0 X4, ANXIOUS ON NRB MARSK STILL 1630. TITRAED TO HIGH FOLLOW 8L/NC WITH O2 SAT 94%. SOB WITH EXERTION. INSERTED SOLITARIO AFTER PVR WAS 990ML. POOR APPETITE. DENIES PAIN. FAMILY AT BEDSIDE. SLOWLY TOWARDS POC GOALS.
[2018-06-22 20:49] VITALS: BP 113/62
[2018-06-23] VITALS (8 sets, daily range): BP systolic 90–128; BP diastolic 38–68
[2018-06-23 04:54] LABS: HEMATOCRIT 31.7 % (37.0-47.0); HEMOGLOBIN 10.3 gm/dL (12.0-15.0); MCH 29.3 pg (26.0-34.0); MCHC 32.4 g/dL (28.0-37.0); MCV 90.4 fL (80.0-100.0); RBC 3.51 mil/uL (4.20-5.00); RDW 14.3 % (10.5-14.5); WBC 13.2 thou/uL (4.0-11.0)
--- NOTE | 2018-06-23 04:57 | NUR ---
RESTING QUIETLY TONIGHT. DENIES PAIN. HER DTR STAYED WITH HER UNTIL BEDTIME. CONTINUES ON IV ANTIBIOTICS. SHE IS COOPERATIVE AND FRIENDLY.
[2018-06-23 05:10] LABS: CALCIUM 8.8 mg/dL (8.5-10.1); POTASSIUM 3.8 mmol/L (3.5-5.1)
--- NOTE | 2018-06-23 10:19 | NUR ---
ASSUMED PATIENT CARE AT 0700. A/O X4. NOTED PATIENT DESAT ON 10L/NC. INCREAED TO 15L HIGH FOLLOW 02 SAT STILL AT 83-85%. SWITCHED TO NRB WITH 15L THEN CALL RT. 02 SAT UP TO 90% AFTER BREATHING TREATMANT. UPTATED WITH DR ESCOBAR GOT NEW ORDER. WILL TRANSFER TO ICU 237 WHEN BED AVAILABLE.
[2018-06-23 10:49] LABS: BE(vivo) 3.8 mmol/L (-2 to +3); HCO3 27.8 mmol/L (22.0-26.0); PCO2 39.2 mmHg (35.0-45.0); PO2 94.1 mmHg (80.0-100.0); pH 7.468 (7.360-7.450); sO2 97.6 % (92.0-98.0)
--- NOTE | 2018-06-23 11:23 | NUR ---
SPOKE WITH PT'S DAUGHTER WHO HAS CONCERN THAT PATIEMNT IS NOT EATING MUCH. HOWEVER DAUGHTER IS ORDERING DOUBLE PORTION FOOD FOR PT AND DAUGHTER IS EATING ALL OF PT'S MEALS. INFORM DAUGHTER THAT I WILL PLACE ORDER FOR SINGING MESSENGER CONSULT AND INSTRUCT NURSING STAFF TO GIVE ENSURE SHAKES TID.
--- NOTE | 2018-06-23 12:22 | NUR ---
TRANSPORT PT TO ICU ROOM 237 FOR CHIRAG BARDALES.
--- NOTE | 2018-06-23 19:57 | NUR ---
ASSUMED CARE AFTER TX FROM 3W. PT WAS A/OX4 BUT WAS HAVING INCREASED WORK OF BREAHING AND INCREASED RESP. DOWN TO 10L BUT DOES TAKE LONGE TO REBOUND AFTER ANY ACTIVITY. VSS. BS STABLE. GOOD URINE OUTPUT, C/O ANXIETY, RESTING NOW, WILL CONTINUE TO MONIOR POC
[2018-06-24] VITALS (20 sets, daily range): BP systolic 86–120; BP diastolic 37–63
[2018-06-24 00:55] LABS: HEMATOCRIT 29.7 % (37.0-47.0); HEMOGLOBIN 9.7 gm/dL (12.0-15.0); MCH 29.1 pg (26.0-34.0); MCHC 32.8 g/dL (28.0-37.0); MCV 88.7 fL (80.0-100.0); RBC 3.35 mil/uL (4.20-5.00); RDW 13.9 % (10.5-14.5); WBC 11.5 thou/uL (4.0-11.0)
[2018-06-24 01:01] LABS: CALCIUM 8.4 mg/dL (8.5-10.1); POTASSIUM 3.2 mmol/L (3.5-5.1)
[2018-06-24 05:40] LABS: CALCIUM 8.9 mg/dL (8.5-10.1); POTASSIUM 4.2 mmol/L (3.5-5.1)
--- NOTE | 2018-06-24 06:00 | NUR ---
AN ABSOLUTELY ADORABLE LITTLE LADY! AWAKE AND ALERT JOHNNY RO. LUNGS DIMINSIHED. NONPRODUCTIVE COUGH. ON OPTIFLOW AT 50 % O2 SAT 98 % 800 CC UO THIS SHIFT.REMAINS IN SINUS RHYTHM. HAD A CHEST CT LAST NIOCT. AWAITING RESULTS. BATHED. WILL CONT TO MONITOR CLOSELY.
--- NOTE | 2018-06-24 16:58 | HC ---
[facility] [place] [address] CONSULTATION Name: DONNA GILL Rosey Room #: 237-P [facility] IN M.R.#: [id number] Admission: 06/20/18 ������������������ Attend Phys: Eliseo Hess MD Discharge: ������������������ Date of : [birth year] Report #: [id number] THIS REPORT FOR: //name// CC: Eliseo Peña REFERRING PHYSICIAN: Dr. Hess. REASON FOR REFERRAL: Acute hypoxic respiratory failure. HISTORY OF PRESENT ILLNESS: The patient is an 87-year-old white female who was brought to the ED with progressive dyspnea, productive cough, low-grade fever and fatigue. Chest x-ray revealed increased bilateral infiltrates. A pulmonary consultation was requested. The patient has known Mycobacterium avium complex infection. This was initially diagnosed in 03/2017. She underwent prolonged triple antibiotic therapy. Three months ago triple antibiotics were discontinued by Dr. Newton Hardy. It was felt the patient was cured of her infection at that time. Although she has been doing fairly well, she has gained a few pounds since the past year. She is active, ambulating regularly. She lives with a daughter. Daughter cares for her on a regular basis. She was doing fairly well until about 3 days prior to presentation she noticed low-grade fever, mild increase in dyspnea and productive cough. Secretion is said to be light yellow. With worsening of symptoms, she presented to the Emergency Room. Chest x-ray on admission showed moderate bilateral patchy interstitial infiltrates with some evidence of small pleural effusion on the right side ____ the left side. Compared to a previous chest x-ray of 12/2017, there may have been slight increase in the left side infiltrates, though technique is different with poor inspiratory effort. Chest x-ray performed earlier today shows increase in bilateral infiltrates. According to daughter, the patient was given fluids. It is felt that the patient may have a component of volume pulmonary edema. Currently, she is on nonrebreather. Respiratory rate is in the 30s. Saturation is 96-97%. She appears to be fairly comfortable and not in distress. She appears tachypneic. PAST MEDICAL HISTORY: As mentioned above, history of Mycobacterium avium infection in 03/2017 undergoing prolonged triple antibiotic therapy, [facility] [address] [place] [address] CONSULTATION Name: DONNA GILL Room #: 237-P [facility] IN [facility].#: [id number] Admission: 06/20/18 ������������������ Attend Phys: Eliseo Hess MD Discharge: ������������������ Date of : [birth year] Report #: [id number] interstitial lung disease, allergic rhinitis, cataracts, anxiety disorder. ALLERGIES: CODEINE, reactions not specified. HOME MEDICATIONS: Prozac, alprazolam, Cozaar, Tessalon Perles. FAMILY HISTORY: Noncontributory. SOCIAL HISTORY: No history of tobacco use. She drinks socially. REVIEW OF SYSTEMS: As mentioned above. She lives with her daughter who is quite attentive to her medical needs. MEDICAL DIRECTIVE: Full code blue. REVIEW OF SYSTEMS: Notable for mild weakness with advancing age, otherwise, good appetite. She ambulates independently. A 10-point system review otherwise negative. PHYSICAL EXAMINATION: GENERAL: She is awake, alert. She is mildly distressed due to tachypnea. VITAL SIGNS: Temperature is 99.6 degrees Fahrenheit, pulse is 110, respiratory rate is 16, blood pressure is 128/66 mmHg, saturation is 98%. HEENT: Normocephalic, atraumatic. NECK: Supple, without lymphadenopathy or thyromegaly. CHEST: Breath sounds are fair due to poor effort. Bilateral crackles. Mild expiratory wheezes. CARDIOVASCULAR: Normal S1, S2. There is no murmur or gallop. There is no JVD. There is no carotid bruit. Pulses are 2+/4+ bilaterally. BREASTS: Exam is deferred. ABDOMEN: Soft, nontender, no organomegaly or masses felt. GENITOURINARY: Deferred. RECTAL: Deferred. EXTREMITIES: There is no edema, cyanosis or clubbing. MUSCULOSKELETAL: Notable for moderate muscle atrophy. NEUROLOGIC: Grossly intact. LABORATORY DATA: Chest x-ray as mentioned above showing increase in bilateral interstitial infiltrates. There is a component of chronic interstitial changes bilaterally when compared to previous chest x-ray, dating back to few years. CT chest from the past also shows diffuse bronchiectasis bilaterally along with honeycombing bilaterally. Electrolytes normal. WBC 13,200, hemoglobin is 10.3. Arterial blood gas on 100% revealed pH 7.46, pCO2 of 39, pO2 of 94. [address] [address] CONSULTATION Name: DONNA GILL Room #: 237-P [facility] IN ..#: [id number] Admission: 06/20/18 ������������������ Attend Phys: Eliseo Hess MD Discharge: ������������������ Date of : [birth year] Report #: [id number] IMPRESSION: 1. Acute hypoxic respiratory failure in this 87-year-old white female with past history of MAC infection along with bronchiectasis and pulmonary fibrosis. She has completed approximately one year of triple antibiotic therapy for her MAC infection. Since admission her chest x-ray has worsened with increased interstitial markings. There is concern for pulmonary edema. Suspect the patient may have a component of infectious process along with pulmonary edema. It is unclear if she has underlying interstitial lung disease resulting in increased inflammatory process. 2. Interstitial lung disease with bronchiectasis, pulmonary fibrosis, presumably related to her MAC infection. 3. Probable volume overload, pulmonary edema, agree with gentle diuresis. 4. Acute hypoxic respiratory failure due to above process. She is not tachypneic with respiratory rate in the 30s, requiring FiO2 of 100%. Concerns are she may fatigue, requiring intubation. At this time, family desires full code blue. RECOMMENDATIONS: Agree with broad-spectrum antibiotics along with gentle diuresis. We will proceed with CT chest for further imaging studies. Again, as mentioned above, if she fatigues, she may require mechanical ventilation. She may require intubation. Also, I had a long discussion with the patient's daughter regarding the possible need for diagnostic bronchoscopy if she does not improve. The patient wishes to think about this. With history of bronchiectasis alongwith worsening infiltrate, would also add corticosteroids for presumed airway inflammation. DVT and GI prophylaxis recommended. Thank you for this consultation. ��������������������������������������������� <ELECTRONICALLY SIGNED> ���������������������������������������� By: Bhanu Plaza MD ��������������������������������������������� 06/24/18 1658 1530 0254 Bhanu Plaza MD /nt
[2018-06-25] VITALS (16 sets, daily range): BP systolic 99–145; BP diastolic 51–84
[2018-06-25 06:05] LABS: ABSOLUTE NEUTROPHILS 8.4 thou/uL (1.4-8.2); BASOPHILS 0.1 % (0.0-2.0); HEMATOCRIT 31.3 % (37.0-47.0); HEMOGLOBIN 10.1 gm/dL (12.0-15.0); LYMPHOCYTES 6.1 % (24.0-44.0); MCH 28.9 pg (26.0-34.0); MCHC 32.3 g/dL (28.0-37.0); MCV 89.5 fL (80.0-100.0); MONOCYTES 3.1 % (1.0-8.0); PLATELET COUNT 272 thou/uL (150-400); POLYS 90.7 % (36.0-66.0); RBC 3.49 mil/uL (4.20-5.00); RDW 13.9 % (10.5-14.5); WBC 9.3 thou/uL (4.0-11.0)
[2018-06-25 06:14] LABS: CALCIUM 9.3 mg/dL (8.5-10.1); CREATININE 1.1 mg/dL (0.6-1.0); POTASSIUM 3.9 mmol/L (3.5-5.1)
--- NOTE | 2018-06-25 07:19 | NUR ---
PATIENT PLACED ON HOLD DUE TO A CHANGE IN MEDICAL STATUS AND WAS TRANSFERRED TO ICU. WILL AWAIT NEW OT ORDERS ONCE PATIENT IS MEDICALLY STABLE.
--- NOTE | 2018-06-25 07:30 | NUR ---
NO SIGNIFICANT CHANGES OVERNIGHT. PT A&O AND PLEASANT. DAUGHTER WAS AT BEDSIDE EARLIER IN THE NIGHT. PT INITIALLY WAS ON OPTIFLOW 50% FIO2 AND 30L O2. PT SWITCHED TO HIGH FLOW NC AT 6L O2 AND TOLERATED WELL, WITH O2 SAT STAYING >98%. PT WAS LATER TITRATED DOWN TO 4L O2 AND TOLERATED WELL. PT IS PROGRESSING. WILL CONTINUE TO MONITOR.
--- NOTE | 2018-06-25 08:07 | NUR ---
Pt TRANSFERRED TO ICU ON 06/23/18. WILL PL[address] ON HOLD AND AWAIT NEW ORDERS TO RESUME WHEN APPROPRIATE.
--- NOTE | 2018-06-25 10:06 | NUR ---
Nutrition: pt admit with SOB, PNA. S/W pt and dtr(caregiver). Consult received related to poor intake. Dtr reports pt's appetite is now returning and was only down a few days. Has a great appetite at home. Weights relatively stable. Geriatric PORK CUTLET MAKER has documented sarcopenia and decreased hand picker and sorter load and unload strength. Discussed and encouraged adequate protein intake. Agrees to ensure TID at this time. Plans to drink between meals. Dtr knows how to order meals. Low risk.
[2018-06-25 11:07] LABS: ADENOVIRUS Negative (Negative); INFLUENZA A Negative (Negative); INFLUENZA B Negative (Negative); METAPNEUMOVIRUS Negative (Negative); PARAINFLUENZA 1 Negative (Negative); PARAINFLUENZA 2 Negative (Negative); PARAINFLUENZA 3 Negative (Negative); RHINOVIRUS Negative (Negative); RSV A Negative (Negative); RSV B Negative (Negative)
--- NOTE | 2018-06-25 16:28 | NUR ---
PT REMAINS ON 4L NC, 6L WITH ACTIVITY. O2 SATURATION MONITORING DIFFICULT PT'S PERIPHERAL CIRCULATION IS POOR. FOREHEAD PROBE APPLIED. VSS. PT UP TO CHAIR MOST OF THE DAY, DID AMBULATE IN HALLWAY WITH PT. PT HAD IMPROVED PO APPETITE TODAY. MED/SURGE ORDERS RECEIVED, AWAITING BED ASSIGNMENT.
--- NOTE | 2018-06-25 22:13 | NUR ---
See [employer] for asssessment. Report called to 4E--pt transported via W/c with 4l nc. Pt states breathing much improved. Sat in icu was 94%. No SOA with activity. gait steady.
[2018-06-26 03:53] VITALS: BP 140/71
[2018-06-26 05:54] LABS: BASOPHILS 0.1 % (0.0-2.0); HEMATOCRIT 30.1 % (37.0-47.0); LYMPHOCYTES 7.9 % (24.0-44.0); MCH 29.4 pg (26.0-34.0); MCHC 33.1 g/dL (28.0-37.0); MCV 88.8 fL (80.0-100.0); MONOCYTES 3.3 % (1.0-8.0); PLATELET COUNT 318 thou/uL (150-400); POLYS 88.7 % (36.0-66.0); RBC 3.39 mil/uL (4.20-5.00); RDW 13.9 % (10.5-14.5); WBC 7.8 thou/uL (4.0-11.0)
[2018-06-26 06:09] LABS: CREATININE 1.1 mg/dL (0.6-1.0); POTASSIUM 4.4 mmol/L (3.5-5.1)
--- NOTE | 2018-06-26 06:33 | NUR ---
patients cares were assumed at 1999. patient assessed and meds were passed. patient was assessed and transfered to this unite. hourly rounding was done. patient did apper to be sleeping well. family at the bedside this shift. family appered to be sleeping and is a snorer. the bed was in a low and locked position. the bed alarm is on.
[2018-06-26 08:00] VITALS: BP 130/46
[2018-06-26 08:15] VITALS: BP 123/66
--- NOTE | 2018-06-26 08:22 | NUR ---
ASSUMED PT CARE AT 0700. ASSESSMENT COMPLETED AND IS CHARTED. VSS. PT IS AWAKE,ALERT/ORIENTED X4. DENIES PAIN OR SHORTNESS OF BREATH. SOME COUGHING BUT IS NON-PRODUCTIVE. REQUESTS MATILDE JOHNS. WALKED PT TO BATHROOM TO ATTEMPT TO URINATE SOLITARIO WAS REMOVED ON 06/25 AROUND 1999. PT URINATED A SMALL AMOUNT. BLADDER WAS SCANNED AND FOUND TO HAVE 277 ML. PT ON CONTINUOUS O2 SAT AND SAT IS IN 90'S ON 4L. DECREASED O2 TO 3L. WILL ATTEMPT TO WEAN TODAY. NO OTHER IMMEDIATE CONCERNS OR ISSUES AT THIS TIME. WILL CONTINUE WITH CURRENT CARE AND NOTIFY PHYSICIAN OF BLADDER SCAN FINDINGS.
--- NOTE | 2018-06-26 10:30 | NUR ---
PATIENT HAD SOLITARIO CATHETER DISCONTINUED ON 06/25 AROUND 1999. THIS MORNING DID NOT FEEL THE NEED TO VOID, DRANK WATER AND COFFEE. BLADDER SCAN AROUND 0830 INDICATED 277 ML. AMBULATED TO BATHROOM, 300 ML OF CLEAR COLORED URINE AT 0900.
[2018-06-26 13:10] VITALS: BP 130/58
--- NOTE | 2018-06-26 13:20 | NUR ---
I have reviewed and concur with student documentation.
--- NOTE | 2018-06-26 14:31 | NUR ---
PATIENT ALERT AND ORIENTED X4. CALM, COOPERATIVE. DAUGHTER AT BEDSIDE. NO PAIN COMPLAINTS THROUGHOUT THE DAY. ATTEMPTING TO WEAN OFF OF OXYGEN. ON 2 LITERS.
--- NOTE | 2018-06-26 14:40 | NUR ---
PT MAINTAINING SAT ON 2L NC. PT DOES DESAT WITH ACTIVITY. EXERCISE OXYMETRY TO BE DONE.
[2018-06-26 16:50] VITALS: BP 128/62
--- NOTE | 2018-06-26 17:23 | NUR ---
MET WITH PT AND HER DTR AND THEY ARE ONLY INTERESTED IN 5N. EXPLAINED QUALIFICATIONS TO PT AND HER DTR FOR 5N. 5N ENTERPRISE PROJECT MANAGER HERE TO EVAL PT WELL. CASE DISCUSSED WITH DR MCKEON.
[2018-06-26 19:48] VITALS: BP 140/61
[2018-06-27 04:30] VITALS: BP 153/59
--- NOTE | 2018-06-27 05:52 | NUR ---
ASSUMED CARE AT 1900, ASSESSMENT COMPLETED. PT REPORTS DRY COUGH WITHOUT SPUTUM, SOB WITH EXERTION, UTILIZING 2L O2 NC WITH EXTENSION TUBING TO GET TO BATHROOM. UP WITH GAIT BELT BUT PT UNSTEADY, SO ADDED A WALKER WHICH PT REPORTED MADE HER FEEL MUCH MORE STABLE, STATED SHE WOULD LIKE TO WALK TODAY AND SIT UP IN CHAIR. SHE DENIED PAIN EXCEPT MILD GENERALIZED PAIN AND TOOK TYLENOL AT HS TO HELP SLEEP, ALONG WITH A XANEX. NO NAUSEA. NO OTHER CONCERNS, WILL CONTINUE TO MONITOR.
[2018-06-27 07:52] VITALS: BP 160/69
--- NOTE | 2018-06-27 14:39 | NUR ---
FAXED REFERRAL TO CM SPOKE WITH JUAN MANUEL IN ADM. SHE RECEIVED REFERRAL AND SHE CAN ACCEPT PT.IF 5N CAN'T ACCEPT. DCP TO FOLLOW.
--- NOTE | 2018-06-27 15:27 | NUR ---
PATIENT SEEN BY PERLA BARAJAS NP ON 06/26/18. PATIENT IS APPROPRIATE FOR ACUTE REHAB AND WOULD LIKE 5 NORTH TO SUBMIT FOR AUTH. [facility] CONTACTED THIS AM AND AFTER THERAPY NOTES WERE DOCUMENTED FOR THIS DATE, ALL NEEDED INFORMATION WAS FAXED TO PRASAD VELAZQUEZ, [facility] TRACK COACH. WILL AWAIT RESPONSE AND UPDATE CASE MANAGEMENT WHEN RESPONSE RECEIVED.
[2018-06-27 15:38] VITALS: BP 134/64
[2018-06-27 19:11] LABS: ANA INTERPRETATION Negative (())
[2018-06-27 19:15] VITALS: BP 128/55
--- NOTE | 2018-06-28 02:21 | NUR ---
ASSUMED CARE AT 1900, ASSESSMENT COMPLETED. PT DENIES PAIN OR NAUSEA. REPORTS BREATHING IS IMPROVED, TOLERATING ACTIVITY BETTER BUT STILL SOA WITHOUT O2. DRY NONPRODUCTIVE COUGH. LUNG SOUNDS IMPROVED COMPARED TO PREVIOUS NIGHT, STILL HAS COARSE CRACKLES ON THE LEFT, BUT CLEARER/MORE FINE CRACKLES ON THE RIGHT, WITH A STRONG EXPIRATORY WHEEZE IN THE RUL. UTILIZING WALKER AND GAIT BELT WHEN WALKING TO TOILET, WITH EXTENSION TUBING FOR O2; GAIT STEADIER TONIGHT THAN PREVIOUS SHIFT. URINATING WELL WITHOUT ISSUE. NO OTHER CONCERNS, WILL CONTINUE TO MONITOR.
[2018-06-28 04:00] VITALS: BP 135/68
[2018-06-28 08:00] VITALS: BP 131/62
--- NOTE | 2018-06-28 08:06 | NUR ---
PT IS A&0X4, VERY [place], PLEASANT, USES SBA W/WALKER, COUGH, USES CALL LIGHT FOR NEEDS, ON 2L 02, DOES NOT USE AT HOME, ENCOURAGED USE OF FLUTTER VALVE AND TO DEEP BREATHE EVEN IF IT INDUCES A COUGH. ENCOURAGED HER TO USE CALL LIGHT FOR ANY NEEDS
[2018-06-28] MEDS ORDERED: CEFDINIR300 MG PO (12:10)
[2018-06-28] MEDS ORDERED: AZITHROMYCIN 2250 MG PO (12:10)
[2018-06-28 18:30] VITALS: BP 129/62
[2018-06-28 20:00] VITALS: BP 124/54
--- NOTE | 2018-06-28 23:11 | NUR ---
Assumed care of pt at 1900. Pt alert and oriented. Family member at bedside at shift change. Hard of hearing. SBA wit walker and gaitbelt. Denies pain. Requests xanax and tylenol to be given before bedtime. 2L O2. Report given to noc nurse.
[2018-06-29 05:20] VITALS: BP 127/71
--- NOTE | 2018-06-29 08:17 | NUR ---
ASSUMED PT CARE APPROX. 2300. PT SLEEPING. ASSESSMENT COMPLETE- AGREE WITH PREVIOUS NURSE ASSESSMENT. IV DRESSING C/D/I, NO SIGNS OF INFILTRATION. PT DENIED PAIN, N/V. VSS. PT ON 2L OXYGEN VIA NC. REPORT GIVEN TO AM NURSE.
--- NOTE | 2018-06-29 09:44 | NUR ---
CALL RECEIVED FROM PRASAD AT [facility]. PATIENT HAS BEEN DENIED AUTHORIZATION FOR ACUTE REHAB STAY. FOR PEER TO PEER TO BE COMPLETED, PRASAD MUST BE CALLED WITH PHYSICAIN NAME AND PHONE NUMBER THAT THEY CAN BE REACHED. THIS MUST BE COMPLETED BY MONDAY (JULY 02) AT 3:00PM. PRASAD'S NUMBER IS [phone]. MEAT TRIMMER AND PULPER OPERATOR INFORMED. THANK YOU FOR THIS REFERRAL.
--- NOTE | 2018-06-29 10:26 | NUR ---
PT. WAS DENIED FOR 5N SO NOTIFIED AND UPDATED CM SPOKE WITH JUAN MANUEL SHE RECEIVED UPDATE AND WILL SUBMIT FOR AUTH. DCP TO FOLLOW.
--- NOTE | 2018-06-29 14:26 | NUR ---
PT. DISCHARGING TODAY TO [facility] FAXED DC ORDERS/SUMMARY TO FACILITY SPOKE WITH JUAN MANUEL IN ADM, SHE RECEIVED DC ORDERS AND ARRANGED TRANSPORT VIA [facility] FOR [phone]. NOTIFIED DPOA ([place]) OF DISCHARGE AND TIME OF TRANSPORT. UNIT NOTIFIED AND CHART COPY PER US. RN TO CALL REPORT TO [phone].
--- NOTE | 2018-06-29 16:08 | NUR ---
LEFT LIST FOR DTR OF PEOPLE THAT MIGHT BE ABLE TO ASSIST HER IN FINDING A NEW INSURANCE COMPANY OR SECONDARY POLICY.
--- NOTE | 2018-06-29 16:33 | NUR ---
ASSUMED CARE AT 0700, SHIFT ASSESSMENT DONE, MEDS GIVEN, VSS. DENIES ANY SOB, PAIN, NAUSEA. DISCHARGE ORDER RECEIVED, PERIPHERAL IV WAS TAKEN OUT. TRIED TO CALL REPORT THREE TIMES AT [facility] AND WAS ON HOLD FOR MORE THAN 5 MINUTES ON ALL OCCASION. PATIENT LEFT WITH [facility]SP[facility] AT 1630.
== END 2018-06-29 17:24 | DRG 871 ==
LOC: ER 17:41 → 4W 18:47 → EROBS 18:47 → 4E 18:47 → 4W 20:46 → SICU 06-21 16:52 → 3W 06-22 04:58 → ICU 06-23 12:08 → 4E 06-25 22:33
PROVIDERS: Emergency Medicine; Internal Medicine Pulmonary Disease; Nurse Practitioner Family; Pediatrics; Specialist; ADMIT Hospitalist
DX: A41.9 Sepsis, unspecified organism (principal); J18.9 Pneumonia, unspecified organism; J96.01 Acute respiratory failure with hypoxia; A31.0 Pulmonary mycobacterial infection; J90 Pleural effusion, not elsewhere classified; J47.9 Bronchiectasis, uncomplicated; F41.9 Anxiety disorder, unspecified; J84.10 Pulmonary fibrosis, unspecified; M62.84 Sarcopenia; R33.9 Retention of urine, unspecified; E87.70 Fluid overload, unspecified; I10 Essential (primary) hypertension; Z90.710 Acquired absence of both cervix and uterus; Z98.42 Cataract extraction status, left eye; Z98.41 Cataract extraction status, right eye; Z88.6 Allergy status to analgesic agent; Z79.899 Other long term (current) drug therapy
CPT/HCPCS: 10045; 10203; 10783; 10879; 15002